=== PATIENT | female | born 1960 | race Caucasian/White ===

== ENCOUNTER → 2020-06-10 | Outpatient (CLI) | payer OTHER ==
[~2020-06-10] VITALS: Ht 160 cm; Wt 97.8 kg
[~2020-06-10] MED LIST: ASPIR 8181 MG PO; BACLOFEN 10MG T10 MG PO; BUPROPION XL300 MG PO; DULOXETINE HCL60 MG PO; HYDROCHLOROTHIA25 M2 PO; HYDROCODON-ACE1 EAC7 PO; LEVOXYL137 MCG PO; LEVOXYL88 MCG PO; LIPITOR 20 MG T20 M1 PO; LOPRESSOR25 PO; LORCET 5-325 M1 EACH PO; MELATONIN3 MG PO; NORCO 5-325 TA1 EACH PO; PERCOCET 10-321 EACH PO; PROZAC 20 MG20 MG PO; TOPROL XL25 MG PO; WELLBUTRIN XL300 MG PO; XANAX 0.25 MG0.25 MG PO; XARELTO20 MG PO; ZANAFLEX4 MG PO
--- NOTE | ~2020-06-10 | HPC ---
[facility] [address] [place] [address] PAIN MANAGEMENT CONSULTATION Name: DOC RUIZ Room #: REG ALANA RobertoBert#: [id number] Admission: 06/10/20 Attend Phys: Angelo Lamar DO Discharge: Date of : 56 Report #: [id number] THIS REPORT FOR: cc: Jazmine Benitez MD, Cora A. MD Johnson, James E. DO ~ CC: Jazmine Lamar DATE OF SERVICE: 06/10/2020 REFERRING PHYSICIAN: Dr. Jazmine Benitez CHIEF COMPLAINT: Low back pain. HISTORY OF PRESENT ILLNESS: As you know, the patient is a very pleasant 59-year-old female who reports longstanding history of low back pain began in the . She denies injury or trauma that may have led to symptom development. The patient states that since 1989, she has experienced back pain on a daily basis. She states initially she "just put up with it." She states over the years the pain has intensified. The patient has had a recent diagnosis of CLL and has had workup for this issue. She has undergone 3 different chemotherapy sessions. She does have only transient remission of her disease process. She indicates that she has been experiencing increasing back pain of late, sought evaluation through her primary care physician who referred the patient on to our clinic after trying conservative medication management and a physician-directed home exercise and stretching program. The patient indicates that today her pain is constant. She describes the pain as throbbing. She places current pain score 7/10, daily average at anywhere from 8-9/10, worst pain has been is 10/10. The patient indicates pain is exacerbated with standing for any length of time, sitting for any length of time. Pain tends to improve with lying down and medication. The patient states that she continues to participate in stretching exercises on an infrequent basis and is utilizing medications for pain control. Due to lack of improvement with conservative treatment options, the patient was referred to our clinic to discuss treatment options for her bilateral back pain. PAST MEDICAL HISTORY: 1. History of DVT. 2. CLL. 3. Stage III kidney disease. 4. Major depressive disorder. 5. Hypothyroidism. 6. Hyperlipidemia. [facility] [address] [place] [address] PAIN MANAGEMENT CONSULTATION Name: DOC RUIZ Room #: REG [facility].#: [id number] Admission: 06/10/20 Attend Phys: Angelo Lamar DO Discharge: Date of : 56 Report #: [id number] 7. Hypertension. 8. Obesity. SOCIAL HISTORY: The patient denies tobacco use. Denies IV or illicit drug use. Admits to 18 alcohol beverages per week. She is employed in non food receiving clerk. She is working, not receiving workmen's compensation nor is trying to obtain disability benefits. She is not in litigation in regards to pain. She is unaccompanied today. REVIEW OF SYSTEMS: Positive for fatigue and weakness, frequent and recurrent headaches, wearing corrective eyewear, hearing loss with tinnitus, shortness of breath with walking and/or lying flat, asthma and wheezing, nocturia, nervousness, depression, glandular or hormonal problems, bleeding and bruising tendencies, history of phlebitis, varicose veins and chronic low back pain. All other review of systems negative per 12-point review of systems other than those listed in history of present illness. Pain impact score 40/70 indicating moderate interference of daily activities secondary to pain. ALLERGIES: PENICILLIN, SULFA and CODEINE. CURRENT MEDICATIONS: Metoprolol 25 mg once a day, atorvastatin 20 mg per day, Xarelto 20 mg once a day, bupropion XL 300 mg once a day, duloxetine 60 mg once a day, baclofen 10 mg once a day, levothyroxine 137 mcg per day, hydrocodone/acetaminophen 5/325 one tab every 6 hours p.r.n. for pain. IMAGING: No imaging available of the lumbar spine. PHYSICAL EXAMINATION: VITAL SIGNS: Blood pressure 156/95, pulse 63, respiratory rate 18 and unlabored. The patient is 95% on room air. Height 5 feet 3 inches tall, weight 215.6 pounds, BMI calculated 38.2. GENERAL: Well-developed, well-nourished, well-hydrated exogenously obese 59-year-old female appearing stated age, pain is rated around 6/10. HEENT: Normocephalic, atraumatic. Pupils equal, round and reactive. Extraocular muscles are intact. NEUROLOGIC: Speech is fluent. The patient is wearing a mask in compliance with COVID-19 restrictions. LUNGS: Clear, no wheeze, rhonchi or rales. CARDIOVASCULAR: Regular. No appreciable gallop or rub. ABDOMEN: Soft, obese, normoactive bowel sounds. EXTREMITIES: Show no clubbing, no cyanosis. No appreciable edema. MUSCULOSKELETAL: The patient does have palpatory tenderness over the paraspinal musculature of lower lumbar spine. No spinous process tenderness. Seated straight leg raising is negative. Supine straight leg raising is negative. [facility] [address] [place] [address] PAIN MANAGEMENT CONSULTATION Name: DOC RUIZ Room #: REG ALANA Martinez#: [id number] Admission: 06/10/20 Attend Phys: Angelo Lamar DO Discharge: Date of : 56 Report #: [id number] Jose's test is negative. Modified Gaenslen's positive for axial low back pain. Ankle clonus negative. Babinski is negative. Lumbar provocation including extension, rotation, lateral flexion all intensify axial back pain. Pain is slightly improved with forward flexion. Gait appears normal. Muscle bulk and tone is symmetrical in lower extremities. ASSESSMENT: 1. Facet arthropathy of the lumbar spine. 2. Lumbosacral spondylosis without current radiculopathy. 3. Chronic low back pain. 4. Chronic lymphocytic leukemia. 5. Stage III kidney disease. 6. Chronic intractable pain. PLAN: 1. Based on today's physical exam, history the patient has provided, the description the patient uses in regards to her pain as well as the distribution of symptoms at present, it would appear the patient is suffering from facet arthropathy pain. This is consistent with the length of time the patient has been experiencing pain since the . Unfortunately, the patient comes to us today without imaging studies and thus we cannot provide the patient with definitive treatment options as we are not confident on the specific sources of symptoms other than facet arthropathy as a contributing factor. We discussed with the patient the general treatment options for facet arthropathy pain. Given her history and the length of time her symptoms have been present in the physical exam, the following was discussed with the patient today. We discussed physical therapy, stretching exercises and core strengthening in a formalized fashion, which would be much more efficient at strengthening the patient's core more rapidly and providing her precautionary treatment course to preserve back function. We discussed medication management with the patient today and suggestions of treatment options to the referring physician. We discussed interventional treatment such as intra-articular facet injections, medial branch nerve blocks and radiofrequency lesioning as a treatment course. Ultimately, surgical options if conservative treatments fail. After reviewing the risks and benefits of all proposed treatment options, the patient chose to move forward with intraarticular facet injections. 2. The patient will have to receive authorization from her primary care physician to be able to come off the anticoagulant Xarelto. In preparation for the intraarticular facet injections, she will need to be off of Xarelto for 3 days. We need a confirmation the patient can come off this medication for the procedure itself. The patient will contact her PCP to obtain this authorization. She has been on this medication for a relatively short period of time and is not confident that she can come off the medication. 3. The patient will follow up with her PCP in regards to further imaging. We will request an MRI lumbar spine without contrast [place] [address] PAIN MANAGEMENT CONSULTATION Name: DOC RUIZ KAILYN Room #: REG CLAngel Martinez#: [id number] Admission: 06/10/20 Attend Phys: Angelo Lamar DO Discharge: Date of : 56 Report #: [id number] and to help direct care more fully. Given the patient's history of CLL and the known lytic type lesions that can occur with CLL, it would be important to image the lumbar spine. The patient will be following up with her PCP in regards to this. MRI will allow us to determine whether or not surgical options may be ultimately necessary versus strictly interventional treatments. The patient will be contacting her PCP either today or tomorrow in regards to this issue. 4. We will have the patient return once we have achieved authorization for the patient to undergo intraarticular facet injections. The third democrat payer requires prior authorization for the patient to undergo any type of interventional treatment. We will begin this process immediately and we will hopefully have this resolved in the next couple of days. We will then contact the patient with the authorization and then schedule for the patient to come off the Xarelto assuming she may do so for the injection to be performed. I am hopeful by that time we will have imaging to review with the patient as well. 5. We wish to thank Dr. Jazmine charles for the opportunity to see this patient in consultation. We will keep you apprised of response to treatment as we address her axial back pain, likely due to facet arthropathy. Again, we wish to thank you for the opportunity to see the patient in consultation. By: [id number] Angelo Lamar DO /rula
[2020-06-10 12:34] VITALS: BP 156/95
--- NOTE | 2020-06-10 12:58 | NUR ---
Pain Clinic Assessment: 1. History of Osteoarthritis: BACK HANDS FEET History of Rheumatoid Arthritis: Not Applicable 2. Height: 5 ft. 3 in. 160.0 cm. Weight: 215.6 lb. oz. 97.796 kg. Patient's BMI: 38.2 3. Vital Signs: BP: 156/95 Pulse: 63 Resp: 18 Temp: 02 Sat: 95 ECG Mon: 4. Pain Intensity: 6 5. Fall Risk: Dizziness: N Needs help standing or walking: N Fallen in the last 3 months: N Fall risk comments: 6. Patient on Blood Thinner: XARELTO 7. History of Hypertension: Y 8. Opioid Therapy greater than 6 weeks: N Opiate Contract Signed: 9. Risk Assessment Tool Provided: LOW RISK 12/24 10. Functional Assessment Tool: 11. Recreational Drug Use: Never Drug Type: Tobacco Use: Never Smoker Tobacco Type: Amount or Packs/day: How Many Years: Alcohol Use: Yes Frequency: Weekly Quant: 18
== END ==
LOC: PAIN 06:56
PROVIDERS: ATTEND Anesthesiology Pain Medicine
DX: M47.817 Spondylosis without myelopathy or radiculopathy, lumbosacral region (principal); N18.3 Chronic kidney disease, stage 3 (moderate); I12.9 Hypertensive chronic kidney disease with stage 1 through stage 4 chronic kidney disease, or unspecified chronic kidney disease; C91.Z0 Other lymphoid leukemia not having achieved remission; G89.4 Chronic pain syndrome; E03.9 Hypothyroidism, unspecified; E78.5 Hyperlipidemia, unspecified; E66.9 Obesity, unspecified; F32.9 Major depressive disorder, single episode, unspecified; Z86.718 Personal history of other venous thrombosis and embolism; Z79.891 Long term (current) use of opiate analgesic; Z79.899 Other long term (current) drug therapy; Z88.2 Allergy status to sulfonamides; Z88.0 Allergy status to penicillin; Z88.5 Allergy status to narcotic agent

== ENCOUNTER → 2020-07-15 | Outpatient (CLI) | payer OTHER ==
[~2020-07-15] VITALS: Ht 160 cm; Wt 97.1 kg
[~2020-07-15] MED LIST changes: +MEDROL DOSPAK21 TA1 PO; +ZANAFLEX4 M2 PO
--- NOTE | ~2020-07-15 | HPC ---
[facility] [employer] [place] [address] PAIN MANAGEMENT CONSULTATION Name: DOC RUIZ Room #: REG ALANA Roberto.#: [id number] Admission: 07/15/20 Attend Phys: Angelo Lamar DO Discharge: Date of : 56 Report #: [id number] THIS REPORT FOR: cc: Jazmine Benitez MD, Cora A. MD Johnson, James E. DO ~ CC: Jazmine Lamar DATE OF SERVICE: 07/15/2020 REFERRING PHYSICIAN: Jazmine Benitez MD CHIEF COMPLAINT: Low back pain. HISTORY OF PRESENT ILLNESS: As you know the patient is a very pleasant 60-year-old female who reports longstanding history of low back pain began in the . She denied injury or trauma. We saw the patient in consultation on 06/10/2020 where she presented without imaging studies and to further evaluate. She was diagnosed with mild facet arthropathy and lumbosacral spondylosis without radiculopathy. She was started on conservative treatment and sent for imaging studies. She returns today in followup visit having completed her imaging to discuss ongoing back pain, she places at 5/10. The patient states pain begins in low back and radiates to the knees. It is chronic in nature, throbbing in sensation, exacerbated with standing for long periods of time, improves with medications and lying down. She continues to work despite the pain, returns today in followup visit to discuss the findings of her MRI and treatment options that might be recommended. ALLERGIES: PENICILLIN, SULFA, CODEINE. CURRENT MEDICATIONS: Metoprolol 25 mg once a day, atorvastatin 20 mg per day, Xarelto 20 mg per day, bupropion XL 300 mg once a day, duloxetine 60 mg once a day, baclofen 10 mg once a day p.r.n., levothyroxine 137 mcg per day, hydrocodone/acetaminophen 5/325 one tab every 6 hours p.r.n. pain. SOCIAL HISTORY: The patient denies tobacco use. Denies IV or illicit drug use. Admits to 18 alcohol beverages per week. She is employed in frozen foods manager, working, not receiving workmen's compensation, unaccompanied today. IMAGING: MRI of the lumbar spine obtained on 06/12/2020 shows T12-L1 unremarkable, L1-L2 unremarkable, L2-L3 unremarkable, L3-L4 unremarkable, L4-L5 unremarkable, L5-S1 unremarkable. PHYSICAL EXAMINATION: [address] [address] PAIN MANAGEMENT CONSULTATION Name: DOC RUIZ Room #: REG CLI [facility]#: [id number] Admission: 07/15/20 Attend Phys: Angelo Lamar DO Discharge: Date of : 56 Report #: [id number] VITAL SIGNS: Blood pressure 143/88, pulse 75, respiratory rate 16 and unlabored. The patient is 95% on room air. Height 5 feet 3 inches tall, weight 214 pounds, BMI calculated 37.9. GENERAL: Well-developed, well-nourished, well-hydrated exogenously obese 60-year-old female appearing her stated age. She is placing current pain score at around 5/10. HEENT: Normocephalic, atraumatic. Pupils equal, round and reactive. NEUROLOGIC: Speech is fluent. The patient deemed an excellent historian. EXTREMITIES: Show no clubbing, no cyanosis, no edema. MUSCULOSKELETAL: Lower extremity strength equal and symmetrical 5/5, intact to light touch from L1 through S2 dermatomes. Seated straight leg raising negative. Supine straight leg raising negative. Jose's test is negative. Modified Gaenslen's positive for some axial low back pain. Ankle clonus negative. Babinski is negative. ASSESSMENT: 1. Myofascial pain. 2. Chronic low back pain without noted pathology. 3. Obesity. PLAN: 1. Based on today's physical exam and history the patient has provided, the description the patient uses in regards to pain, it would be considered that the patient is suffering from lumbar facet arthropathy. I am pleased to advise the patient at this point that the findings of her MRI are totally normal. There is no remarkable findings including mild arthritic changes even any myofascial changes. Her MRI is completely normal with no noted pathology. We discussed this with the patient today. I am pleased to advise the patient that interventional treatments will not be necessary to treat her symptoms. She was given a copy of the MRI after we reviewed the findings with her today. 2. We would recommend the patient begin a physical therapy program with stretching exercises, core strengthening as the goal standard of therapy. She will consider this option. We did offer a referral for formalized physical therapy and weight maintenance. At this point, she wishes to return to her normal activities. She will consider this as an option. She can contact our clinic or PCP to receive this referral. 3. In regards to medication management if she wishes to take medications, she can use [id number] therapies such as ibuprofen interspersed with acetaminophen. This could provide some analgesic benefit, though without stretching exercise, core strengthening, and weight loss, these medications will have minimal effect. 4. We will be returning the patient's care to her primary care physician, Dr. Benitez for further evaluation. I am pleased to advise the patient at this time, they will not need our services further. We will be returning her care to Dr. [facility] [address] [place] [address] PAIN MANAGEMENT CONSULTATION Name: DOC RUIZ Room #: REG ALANA Martinez#: [id number] Admission: 07/15/20 Attend Phys: Angelo Lamar DO Discharge: Date of : 56 Report #: [id number] Mallot with suggestions for formalized physical therapy and weight loss as a treatment course. By: 1229 [id number] Angelo Lamar DO /nt
[2020-07-15 13:38] VITALS: BP 143/88
--- NOTE | 2020-07-15 13:40 | NUR ---
Pain Clinic Assessment: 1. History of Osteoarthritis: BACK HANDS FEET History of Rheumatoid Arthritis: Not Applicable 2. Height: 5 ft. 3 in. 160.0 cm. Weight: 214.0 lb. oz. 97.070 kg. Patient's BMI: 37.9 3. Vital Signs: BP: 143/88 Pulse: 75 Resp: 16 Temp: 02 Sat: 95 ECG Mon: 4. Pain Intensity: 5 5. Fall Risk: Dizziness: N Needs help standing or walking: N Fallen in the last 3 months: N Fall risk comments: 6. Patient on Blood Thinner: XARELTO 7. History of Hypertension: Y 8. Opioid Therapy greater than 6 weeks: N Opiate Contract Signed: 9. Risk Assessment Tool Provided: LOW RISK 3 10. Functional Assessment Tool: 11. Recreational Drug Use: Never Drug Type: Tobacco Use: Never Smoker Tobacco Type: Amount or Packs/day: How Many Years: Alcohol Use: Yes Frequency: Quant:
== END ==
LOC: PAIN 07:01
PROVIDERS: ATTEND Anesthesiology Pain Medicine
DX: M54.5 Low back pain (principal); M79.7 Fibromyalgia; G89.29 Other chronic pain; E66.9 Obesity, unspecified; Z88.8 Allergy status to other drugs, medicaments and biological substances; Z79.899 Other long term (current) drug therapy